=== PATIENT | female | born 1995 | race Caucasian/White ===

== ENCOUNTER 2016-09-20 13:04 | Emergency (ER) | payer OTHER ==
[2016-09-20 14:40] VITALS: BP 133/86
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
== END 2016-09-20 15:46 | disposition home or self-care (01) ==
LOC: UCEAST 13:04
DX: S80.01XA Contusion of right knee, initial encounter (principal); F64.0 Transsexualism; F17.200 Nicotine dependence, unspecified, uncomplicated; X58.XXXA Exposure to other specified factors, initial encounter; Y93.55 Activity, bike riding; Y92.9 Unspecified place or not applicable
CPT/HCPCS: 99211; G0463